=== PATIENT | female | born 1965 | race Caucasian/White ===

== ENCOUNTER 2017-06-04 08:24 | Emergency (ER) | payer MEDICAID ==
[2017-06-04] MEDS ORDERED: Aspirin 81 MG Tab.Chew PO ONE (08:33)
[2017-06-04] MEDS ORDERED: Sodium Chloride 0.9% 10 ML Syringe FLUSH PRN (08:33)
--- NOTE | 2017-06-04 08:40 | EDM.PDOC ---
ED HPI GENERAL MEDICAL PROBLEM - General Chief Complaint: Chest Pain Stated Complaint: SENT FROM RADIOLOGY Time Seen by Provider: 06/04/17 08:26 Source of Information: Reports: Patient, Provider History Limitations: Reports: No Limitations - History of Present Illness INITIAL COMMENTS - FREE TEXT/NARRATIVE: The patient presents from radiology with left sided chest pain down into her left arm. This started this morning when she was doing a cardiac stress test. She describes the chest pain as squeezing. She is short of breath with it. She has no fever, chills, cough, abdominal pain, nausea or vomiting. She has a history of 2 MIs with stents. 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 For a few weeks she has been having chest pain and she sees Dr Subramanian and he recommended a stress test be done. There were no changes on her EKG with the stress test but she failed due to symptoms. Onset: Sudden Duration: Minutes: Location: Reports: Chest Quality: Reports: Other (Squeezing) Severity: Severe Improves with: Reports: None Worsens with: Reports: None Associated Symptoms: Reports: Chest Pain, Shortness of Breath. Denies: Cough, Fever/Chills, Headaches, Nausea/Vomiting Left Chest Pain Score (Numeric/FACES): 8 - Related Data Allergies Allergy/AdvReac Type Severity Reaction Status Date / Time atorvastatin calcium Allergy Anaphylactic Verified 06/04/17 08:32 [From Lipitor] Shock levofloxacin [From Levaquin] Allergy Nausea and Verified 06/04/17 08:32 Vomiting meperidine HCl [From Demerol] Allergy Anaphylactic Verified 06/04/17 08:32 Shock Sulfa (Sulfonamide Allergy Anaphylactic Verified 06/04/17 08:32 Antibiotics) Shock sulfamethoxazole Allergy Anaphylactic Verified 06/04/17 08:32 [From Bactrim] Shock trimethoprim [From Bactrim] Allergy Anaphylactic Verified 06/04/17 08:32 Shock morphine AdvReac Nausea and Verified 06/04/17 08:32 Vomiting nalbuphine HCl [From Nubain] AdvReac Nausea and Verified 06/04/17 08:32 Vomiting Home Meds: Home Meds Aspirin [Darrell Chewable Aspirin] 81 mg PO DAILY 11/03/13 [History] Acetaminophen [Acetaminophen Extra Strength] 500 mg PO Q4HR PRN 06/26/14 [ History] Clopidogrel Bisulfate [Clopidogrel] 75 mg PO DAILY 06/26/14 [History] Nitroglycerin [Nitrostat] 0.4 mg SL ASDIRECTED PRN 06/26/14 [History] Carvedilol 25 mg PO BID 06/17/16 [History] Isosorbide Mononitrate [Isosorbide Mononitrate ER] 120 mg PO DAILY 06/17/16 [ History] Rosuvastatin [Crestor] 20 tab PO DAILY 06/17/16 [History] amLODIPine Besylate [Amlodipine Besylate] 5 mg PO DAILY 06/17/16 [History] diphenhydrAMINE [Benadryl] 1 tab PO Q6HR PRN 06/17/16 [History] Diltiazem [Tiazac] 120 mg PO DAILY 06/04/17 [History] Fluticasone Furoate [Flonase Sensimist] 1 spray INH BID 06/04/17 [History] Ranitidine HCl [Zantac] 150 mg PO DAILY 06/04/17 [History] Sucralfate [Carafate] 1 tab PO QID PRN 06/04/17 [History] Past Medical History HEENT History: Reports: Impaired Vision Cardiovascular History: Reports: High Cholesterol, Hypertension, [place] Other Cardiovascular History: atrial runs, PSVT, short run of Vtach, SVT, heart cath with stent x 1, EP study Other Respiratory History: rib resection, recent sleep study, pending sleep apnea results Gastrointestinal History: Reports: Diverticulosis, Gastritis Genitourinary History: Reports: Renal Calculus, Other (See Below) Other Genitourinary History: kidney disease 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 Other Musculoskeletal History: lock jaw Neurological History: Reports: None Psychiatric History: Reports: None Endocrine/Metabolic History: Reports: None Hematologic History: Reports: Anemia Immunologic History: Reports: None Oncologic (Cancer) History: Reports: None Dermatologic History: Reports: None - Past Surgical History GI Surgical History: Reports: Colonoscopy, Other (See Below) Musculoskeletal Surgical History: Reports: Other (See Below) Social & Family History - Tobacco Use Smoking Status *Q: Current Every Day Smoker Years of Tobacco use: 8 Packs/Tins Daily: 0.2 Second Hand Smoke Exposure: No - Caffeine Use Caffeine Use: Reports: Coffee - Alcohol Use Days Per Week of Alcohol Use: 0 Number of Drinks Per Day: 0 Total Drinks Per Week: 0 - Recreational Drug Use Recreational Drug Use: No Drug Use in Last 12 Months: No ED ROS GENERAL - Review of Systems Review Of Systems: See Below Constitutional: Reports: No Symptoms HEENT: Reports: No Symptoms Respiratory: Reports: Shortness of Breath Cardiovascular: Reports: Chest Pain Endocrine: Reports: No Symptoms GI/Abdominal: Reports: No Symptoms : Reports: No Symptoms Musculoskeletal: Reports: No Symptoms ED EXAM, GENERAL - Physical Exam Exam: See Below Exam Limited By: No Limitations General Appearance: Alert, No Apparent Distress Ears: Normal External Exam Nose: Normal Inspection Head: Atraumatic, Normocephalic Neck: Normal Inspection Respiratory/Chest: No Respiratory Distress, Lungs Clear, Normal Breath Sounds Cardiovascular: Regular Rate, Rhythm, No Edema, No Murmur GI/Abdominal: Soft, Non-Tender, No Organomegaly, No Mass Back Exam: Normal Inspection Extremities: Normal Inspection EKG INTERPRETATION EKG Date: 06/04/17 Time: 08:26 Rhythm: NSR Rate (Beats/Min): 86 Cosby: Normal P-Wave: Present QRS: Normal ST-T: Normal QT: Normal EKG Interpretation Comments: PAC Course - Vital Signs Last Recorded V/S: Last Vital Signs Temp 96.5 F 06/04/17 08:26 Pulse 89 06/04/17 08:26 Resp 18 06/04/17 08:26 BP 140/76 06/04/17 08:59 Pulse Ox 100 06/04/17 08:26 - Orders/Labs/Meds Orders: Active Orders 24 hr Category Date Time Status Cardiac Monitoring [RC] . DIRECTED Care 06/04/17 08:33 Active EKG Documentation Completion [RC] STAT Care 06/04/17 08:34 Active Oxygen Therapy [RC] PRN Care 06/04/17 08:33 Active Peripheral IV Care [RC] . DIRECTED Care 06/04/17 08:34 Active CBC W/O DIFF,HEMOGRAM [HEME] MOTH@0700 Lab 06/08/17 07:00 Ordered CBC W/O DIFF,HEMOGRAM [HEME] MOTH@0700 Lab 06/11/17 07:00 Ordered CBC W/O DIFF,HEMOGRAM [HEME] MOTH@0700 Lab 06/15/17 07:00 Ordered CBC W/O DIFF,HEMOGRAM [HEME] MOTH@0700 Lab 06/18/17 07:00 Ordered CBC W/O DIFF,HEMOGRAM [HEME] MOTH@0700 Lab 06/22/17 07:00 Ordered CBC W/O DIFF,HEMOGRAM [HEME] MOTH@0700 Lab 06/25/17 07:00 Ordered Heparin Sodium/D5W [Heparin 25,000 Units in D5W 500 ML] Med 06/04/17 11:15 Active 25,000 units in 500 ml IV TITRATE Nitroglycerin [Nitrostat] Med 06/04/17 08:33 Active 0.4 mg SL Q5M PRN Nitroglycerin/D5W [Nitroglycerin 25 MG/D5W 250 ML] Med 06/04/17 11:15 Active 25 mg in 250 ml IV TITRATE Sodium Chloride 0.9% [Saline Flush] Med 06/04/17 08:33 Active 10 ml FLUSH ASDIRECTED PRN Peripheral IV Insertion Adult [OM.PC] Stat Oth 06/04/17 08:33 Ordered Medication Orders Nitroglycerin/Dextrose (Nitroglycerin 25 Mg/D5w 250 Ml) 25 mg in 250 mls @ 3 mls/hr IV TITRATE KARINA PRN Reason: Protocol Heparin Sodium/Dextrose (Heparin 25,000 Units In D5w 500 Ml) 25,000 units in 500 mls @ 20.321 mls/hr IV TITRATE KARINA; 10 UNITS/KG/HR PRN Reason: Protocol Nitroglycerin (Nitrostat) 0.4 mg SL Q5M PRN PRN Reason: Chest Pain Stop: 06/05/17 08:34 Last Admin: 06/04/17 08:59 Dose: 0.4 mg Admin: 06/04/17 08:54 Dose: 0.4 mg Admin: 06/04/17 08:43 Dose: 0.4 mg Sodium Chloride (Saline Flush) 10 ml FLUSH ASDIRECTED PRN PRN Reason: Keep Vein Open Last Admin: 06/04/17 08:44 Dose: 10 ml Labs: Laboratory Tests 06/04/17 06/04/17 Range/Units 08:49 08:49 WBC 6.45 (3.98-10.04) K/mm3 RBC 5.33 H (3.98-5.22) M/mm3 Hgb 13.5 (11.2-15.7) gm/L Hct 42.0 (34.1-44.9) % MCV 78.8 L (79.4-94.8) fl MCH 25.3 L (25.6-32.2) pg MCHC 32.1 L (32.2-35.5) g/dl RDW Std Deviation 45.1 (36.4-46.3) fL Plt Count 310 (182-369) K/mm3 MPV 9.0 L (9.4-12.3) fl Neut % (Auto) 55.6 (34.0-71.1) % Lymph % (Auto) 34.3 (19.3-51.7) % Zavala % (Auto) 7.1 (4.7-12.5) % Eos % (Auto) 1.9 (0.7-5.8) Baso % (Auto) 0.6 (0.1-1.2) % Neut # (Auto) 3.59 (1.56-6.13) K/mm3 Lymph # (Auto) 2.21 (1.18-3.74) K/mm3 Zavala # (Auto) 0.46 H (0.24-0.36) K/mm3 Eos # (Auto) 0.12 (0.04-0.36) K/mm3 Baso # (Auto) 0.04 (0.01-0.08) K/mm3 Sodium 141 (136-145) mEq/L Potassium 3.8 (3.5-5.1) mEq/L Chloride 107 (98-107) mEq/L Carbon Dioxide 24 (21-32) mEq/L Anion Gap 13.8 (5-15) BUN 17 (7-18) mg/dL Creatinine 0.8 (0.55-1.02) mg/dL Est Cr Clr Drug Dosing 64.32 mL/min Estimated GFR (MDRD) > 60 (>60) mL/min BUN/Creatinine Ratio 21.3 H (14-18) Glucose 117 H (74-106) mg/dL Calcium 8.5 (8.5-10.1) mg/dL Total Bilirubin 0.3 (0.2-1.0) mg/dL AST 14 L (15-37) U/L ALT 25 (14-59) U/L Alkaline Phosphatase 107 (46-116) U/L Troponin I < 0.017 (0.00-0.056) ng/mL Total Protein 7.2 (6.4-8.2) g/dl Albumin 3.3 L (3.4-5.0) g/dl Globulin 3.9 gm/dL Albumin/Globulin Ratio 0.9 L (1-2) Meds: Medications Generic Name Dose Route Start Last Admin Trade Name Freq PRN Reason Stop Dose Admin Nitroglycerin/Dextrose 25 mg in 250 mls @ 3 mls/hr 06/04/17 11:15 Nitroglycerin 25 Mg/D5w 250 Ml IV TITRATE KARINA Protocol Heparin Sodium/Dextrose 25,000 units in 500 mls @ 20.321 mls/hr 06/04/17 11: 15 Heparin 25,000 Units In D5w 500 Ml IV TITRATE KARINA Protocol 10 UNITS/KG/HR Nitroglycerin 0.4 mg 06/04/17 08:33 06/04/17 08:59 Nitrostat SL 06/05/17 08:34 0.4 mg Q5M PRN Administration Chest Pain Sodium Chloride 10 ml 06/04/17 08:33 06/04/17 08:44 Saline Flush FLUSH 10 ml ASDIRECTED PRN Administration Keep Vein Open Discontinued Medications Generic Name Dose Route Start Last Admin Trade Name Evgenyq PRN Reason Stop Dose Admin Aspirin 324 mg 06/04/17 08:33 06/04/17 08:42 Aspirin PO 06/04/17 08:34 324 mg ONETIME ONE Administration Heparin Sodium (Porcine) 5,000 units 06/04/17 11:13 Heparin Sodium IVPUSH 06/04/17 11:14 ONETIME ONE - Re-Assessments/Exams Free Text/Narrative Re-Assessment/Exam: 06/04/17 08:39 I ordered oxygen PRN, EKG, CXR, labs, aspirin and nitro. 06/04/17 11:19 Her EKG shows a NSR with no acute changes. Her CXR looks good. Her CBC and CMP looks good. Her troponin was negative. Her pain is better but not gone. It is down to 2/10. I called the herbologist transportation planner at [facility] and he accepted the patient but he did want the stress test done first. She will have the nuclear part soon. I also talked with the hospitalist Dr Starkey. I ordered a nitro drip, heparin bolus of 4,000 units IV and a drip at 1,000 units/ hr. Departure - Departure Time of Disposition: 11:30 Disposition: DC/Tfer to Acute Hospital 02 Reason for Transfer *Q: Other Condition: Poor Clinical Impression: Chest pain, Unstable angina Referrals: Gómez Abraham MD [Primary Care Provider] - Forms: ED Department Discharge - My Orders Last 24 Hours: My Active Orders 06/04/17 08:33 Cardiac Monitoring [RC] . DIRECTED Oxygen Therapy [RC] PRN Nitroglycerin [Nitrostat] 0.4 mg SL Q5M PRN Sodium Chloride 0.9% [Saline Flush] 10 ml FLUSH ASDIRECTED PRN Peripheral IV Insertion Adult [OM.PC] Stat 06/04/17 08:34 EKG Documentation Completion [RC] STAT Peripheral IV Care [RC] . DIRECTED 06/04/17 11:15 Heparin Sodium/D5W [Heparin 25,000 Units in D5W 500 ML] 25,000 units in 500 ml IV TITRATE Nitroglycerin/D5W [Nitroglycerin 25 MG/D5W 250 ML] 25 mg in 250 ml IV TITRATE 06/08/17 07:00 CBC W/O DIFF,HEMOGRAM [HEME] MOTH@0700 06/11/17 07:00 CBC W/O DIFF,HEMOGRAM [HEME] MOTH@0700 06/15/17 07:00 CBC W/O DIFF,HEMOGRAM [HEME] MOTH@0700 06/18/17 07:00 CBC W/O DIFF,HEMOGRAM [HEME] MOTH@0700 06/22/17 07:00 CBC W/O DIFF,HEMOGRAM [HEME] MOTH@0700 06/25/17 07:00 CBC W/O DIFF,HEMOGRAM [HEME] MOTH@0700 - Assessment/Plan Last 24 Hours: My Active Orders 06/04/17 08:33 Cardiac Monitoring [RC] . DIRECTED Oxygen Therapy [RC] PRN Nitroglycerin [Nitrostat] 0.4 mg SL Q5M PRN Sodium Chloride 0.9% [Saline Flush] 10 ml FLUSH ASDIRECTED PRN Peripheral IV Insertion Adult [OM.PC] Stat 06/04/17 08:34 EKG Documentation Completion [RC] STAT Peripheral IV Care [RC] . DIRECTED 06/04/17 11:15 Heparin Sodium/D5W [Heparin 25,000 Units in D5W 500 ML] 25,000 units in 500 ml IV TITRATE Nitroglycerin/D5W [Nitroglycerin 25 MG/D5W 250 ML] 25 mg in 250 ml IV TITRATE 06/08/17 07:00 CBC W/O DIFF,HEMOGRAM [HEME] MOTH@69906/11/17 07:00 CBC W/O DIFF,HEMOGRAM [HEME] MOTH@69906/15/17 07:00 CBC W/O DIFF,HEMOGRAM [HEME] MOTH@69906/18/17 07:00 CBC W/O DIFF,HEMOGRAM [HEME] MOTH@69906/22/17 07:00 CBC W/O DIFF,HEMOGRAM [HEME] MOTH@69906/25/17 07:00 CBC W/O DIFF,HEMOGRAM [HEME] MOTH@699
[2017-06-04] MEDS: Nitroglycerin 0.4 MG Tab.SL SL PRN ×3 (08:43→08:59)
[2017-06-04 09:00] VITALS: BP 140/76
--- NOTE | 2017-06-04 09:02 | CR ---
Chest: Frontal view of the chest was obtained. Comparison: Prior chest x-ray of 02/20/15. Minimal atelectasis is incidentally noted within the lateral left costophrenic angle. Lungs otherwise are clear. Heart size and mediastinum are normal. Calcifications are noted off the left shoulder compatible with calcific tendinitis. Two linear densities are seen overlying the left posterior third rib of uncertain etiology but felt to be incidental. Impression: 1. Incidental findings. Nothing acute is seen. Diagnostic code #2
[2017-06-04] MEDS ORDERED: Heparin Sodium 5,000 Units/ML Vial IVPUSH ONE ×2 (11:13→11:23)
[2017-06-04] MEDS ORDERED: Nitroglycerin/D5W 25 MG/250 ML BOTTLE IV SCH (11:15)
[2017-06-04] MEDS ORDERED: Heparin Sodium/D5W 25,000 UNITS/500 ML BAG IV SCH (11:15)
== END 2017-06-04 12:45 ==
LOC: JD.ED 08:24 → SUPCPDRO 08:24 → JD.ED 12:45
DX: I20.0 Unstable angina (principal); F17.210 Nicotine dependence, cigarettes, uncomplicated; I10 Essential (primary) hypertension; E78.00 Pure hypercholesterolemia, unspecified; Z79.82 Long term (current) use of aspirin; Z79.02 Long term (current) use of antithrombotics/antiplatelets; Z79.899 Other long term (current) drug therapy; Z88.1 Allergy status to other antibiotic agents; Z88.5 Allergy status to narcotic agent; Z88.2 Allergy status to sulfonamides; Z88.8 Allergy status to other drugs, medicaments and biological substances
CPT/HCPCS: 36415; 71045; 71045-26; 80053; 84484; 85025; 93005; 96365; 96368; 99285-25; A9270-GY; J1644; J7050

== ENCOUNTER 2020-05-02 08:42 | Day surgery (SDC) | payer MEDICARE, MEDICAID ==
[~2020-05-02 08:42] MED LIST: Lactated Ringers 1,000 ML IV SCH; Lidocaine 1%/Sod Bicarbonate in NS 8.4% 1 ML Syringe IDERM PRN; Scopolamine 1.5 MG Transdermal Patch TRDERM SCH; Sodium Chloride 0.9% 10 ML Syringe FLUSH PRN
--- NOTE | 2020-05-02 09:23 | PCM.PREANE ---
Preanesthetic Assessment - Procedure Proposed Procedure: egd colonosciopy diagnostic - Anesthesia/Transfusion/Family Hx Anesthesia History: Prior Anesthesia Reaction Type of Anesthesia Reaction: Excessive Nausea/Vomiting Family History of Anesthesia Reaction: No Transfusion History: Prior Transfusion Without Reaction - Review of Systems General: No Symptoms Pulmonary: Shortness of Breath, Wheezing, Cough (has because she has heart disease- right sided heart failure) Cardiovascular: Chest Pain (chronic chest pain- spasm- takes imdur for it), Dyspnea on Exertion Gastrointestinal: No Symptoms Neurological: No Symptoms Other: Reports: Sinus Problem (allergies) - Physical Assessment NPO Status Date: 05/01/20 NPO Status Time: 22:30 Vital Signs: Last Vital Signs Temp 97.4 F 05/02/20 08:40 Pulse 84 05/02/20 08:40 Resp 16 05/02/20 08:40 BP 115/64 05/02/20 08:40 Pulse Ox 93 L 05/02/20 08:40 Height: 5 ft 2 in Weight: 108.862 kg ASA Class: 3 Mental Status: Alert & Oriented x3 Airway Class: Mallampati = 1 Dentition: Reports: Normal Dentition Thyro-Mental Finger Breadths: 3 Mouth Opening Finger Breadths: 3 ROM/Head Extension: Full Lungs: Clear to Auscultation, Normal Respiratory Effort Cardiovascular: Regular Rate, Regular Rhythm - Allergies Allergies/Adverse Reactions: Allergies Allergy/AdvReac Type Severity Reaction Status Date / Time atorvastatin calcium Allergy Anaphylactic Verified 05/01/20 12:34 [From Lipitor] Shock diltiazem Allergy Edema Verified 05/01/20 12:34 fluticasone Allergy Cough Verified 05/01/20 12:34 [From Advair Diskus] Iodinated Contrast Media Allergy Nausea Verified 05/01/20 12:34 levofloxacin [From Levaquin] Allergy Nausea and Verified 05/01/20 12:34 Vomiting meperidine HCl [From Demerol] Allergy Anaphylactic Verified 05/01/20 12:34 Shock salmeterol Allergy Cough Verified 05/01/20 12:34 [From Advair Diskus] Sulfa (Sulfonamide Allergy Anaphylactic Verified 05/01/20 12:34 Antibiotics) Shock morphine AdvReac Nausea and Verified 05/01/20 12:34 Vomiting nalbuphine HCl [From Nubain] AdvReac Nausea and Verified 05/01/20 12:34 Vomiting - Blood Blood Available: No - Anesthesia Plan Beta Anastacio: Carvedilol Med Last Dose Date: 05/01/20 Med Last Dose Time: 10:00 - Acknowledgements Anesthesia Type Planned: MAC Pt an Appropriate Candidate for the Planned Anesthesia: Yes Alternatives and Risks of Anesthesia Discussed w Pt/Guardian: Yes Pt/Guardian Understands and Agrees with Anesthesia Plan: Yes PreAnesthesia Questionnaire HEENT History: Reports: Impaired Vision, Other (See Below) Other HEENT History: blurred vision to right eye Cardiovascular History: Reports: High Cholesterol, Hypertension, [place] Other Cardiovascular History: atrial runs, PSVT, short run of Vtach, SVT, heart cath with stent x 2 - 2013 and 2018 EP study Respiratory History: Reports: Asthma, Sleep Apnea, Other (See Below) Other Respiratory History: rib resection, dypsnea on exertion Gastrointestinal History: Reports: Diverticulosis, Gastritis, GERD Other Gastrointestinal History: hemorrhagic gastritis, post op nausea and vomiting Genitourinary History: Reports: Renal Calculus, Other (See Below) Other Genitourinary History: kidney disease 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 Musculoskeletal History: Reports: Arthritis Other Musculoskeletal History: lock jaw Neurological History: Reports: Other (See Below) Other Neuro History: mitochondrial disease Psychiatric History: Reports: None Endocrine/Metabolic History: Reports: Obesity/BMI 30+ Hematologic History: Reports: Anemia, Other (See Below) Other Hematologic History: microcytosis Immunologic History: Reports: None Oncologic (Cancer) History: Reports: None Dermatologic History: Reports: None - Infectious Disease History Infectious Disease History: Reports: None - Past Surgical History Head Surgeries/Procedures: Reports: None HEENT Surgical History: Reports: None Cardiovascular Surgical History: Reports: Coronary Artery Stent Respiratory Surgical History: Reports: None GI Surgical History: Reports: Cholecystectomy, Colonoscopy, EGD, Other (See Below) Other GI Surgeries/Procedures: abdominal surgery, lysis of adhesions Female Surgical History: Reports: Hysterectomy, Oophorectomy Male Surgical History: Reports: None Endocrine Surgical History: Reports: None Neurological Surgical History: Reports: None Musculoskeletal Surgical History: Reports: Other (See Below) Other Musculoskeletal Surgeries/Procedures:: R rotator cuff repair, biceps repair, bone spurs removed, left foot surgery (neuromas removed) Dermatological Surgical History: Reports: None - SUBSTANCE USE Tobacco Use Status *Q: Current Every Day Tobacco User Tobacco Use Within Last Twelve Months: Cigarettes Second Hand Smoke Exposure: Yes Days Per Week of Alcohol Use: 0 Recreational Drug Use History: No - HOME MEDS Home Medications: Home Meds Aspirin [Darrell Chewable Aspirin] 81 mg PO DAILY 11/03/13 [History] Acetaminophen [Acetaminophen Extra Strength] 500 mg PO Q4HR PRN 06/26/14 [His tory] Clopidogrel Bisulfate [Clopidogrel] 75 mg PO DAILY 06/26/14 [History] Nitroglycerin [Nitrostat] 0.4 mg SL ASDIRECTED PRN 06/26/14 [History] amLODIPine Besylate [Amlodipine Besylate] 5 mg PO DAILY 06/17/16 [History] carvediloL [Carvedilol] 25 mg PO BID 06/17/16 [History] diphenhydrAMINE [Benadryl] 1 tab PO Q6HR PRN 06/17/16 [History] Fluticasone Furoate [Flonase Sensimist] 1 spray INH BID 06/04/17 [History] Albuterol [Proventil HFA] 2 puff INH Q8H PRN 05/01/20 [History] Calcium Carbonate [Tums] 500 mg PO QID PRN 05/01/20 [History] Furosemide [Lasix] 20 mg PO QPM 05/01/20 [History] Furosemide [Lasix] 40 mg PO QAM 05/01/20 [History] Isosorbide Mononitrate [Imdur] 60 mg PO BID 05/01/20 [History] Potassium Chloride 10 meq PO BID 05/01/20 [History] guaiFENesin [Mucinex] 1,200 mg PO BID 05/01/20 [History] - CURRENT (IN HOUSE) MEDS Current Meds: Current Medications Lactated Ringer's (Ringers, Lactated) 1,000 mls @ 125 mls/hr IV ASDIRECTED KARINA Stop: 05/02/20 23:00 Lidocaine/Sodium Bicarbonate (Buffered Lidocaine 1% In Ns 8.4%) 0.25 ml IDERM ONETIME PRN PRN Reason: Prior to IV Start Stop: 05/02/20 18:00 Scopolamine (Transderm-Scop) 1.5 mg TRDERM ONETIME KARINA Stop: 05/02/20 14:00 Last Admin: 05/02/20 08:42 Dose: 1.5 mg Documented by: Sodium Chloride (Saline Flush) 10 ml FLUSH ASDIRECTED PRN PRN Reason: Keep Vein Open Stop: 05/02/20 18:00
[2020-05-02] MEDS ORDERED: Albuterol 0.083% 2.5 MG/3 ML Neb Soln NEB ONE (09:25)
[2020-05-02] MEDS ORDERED: Propofol 200 MG/20 ML SDV ONE ×2 (09:42→11:07)
[2020-05-02] MEDS ORDERED: Lidocaine 1% 4 ML ONE (09:42)
[2020-05-02] MEDS ORDERED: Midazolam 1 MG/ML 2 ML SDV ONE (09:42)
[2020-05-02] MEDS ORDERED: fentaNYL 100 MCG/2 ML SDV ONE (09:42)
[2020-05-02] MEDS ORDERED: Lactated Ringers 1,000 ML ONE (11:41)
--- NOTE | 2020-05-02 11:43 | PCM.OPNOTE ---
- General Post-Op/Procedure Note Date of Surgery/Procedure: 05/02/20 Operative Procedure(s): EGD and colonoscopy Findings: 1. Irregular GE junction (features of esophagitis) 2. Small sliding hiatal hernia 3. Gastritis 4. Duodenitis 5. Duodenal polyp 6. Diverticulosis 7. Sigmoid colitis and proctitis 8. Ascending colon polyp 9. Transverse colon polyp 10. Sigmoid polyp x2 11. Rectal polyp x2 Pre Op Diagnosis: Iron deficiency anemia, abdominal pain Post-Op Diagnosis: same Anesthesia Technique: MAC Primary Surgeon: Alison Isabel Anesthesia Provider: Gavino Carrillo Pathology: 1. GE junction biopsies (features of esophagitis) 2. Gastritic antrum biopsy 3. Duodenal biopsy 4. Duodenal polyp biopsy 5. Sigmoid colitis and proctitis biopsies 6. Ascending colon polyp 7. Transverse colon polyp 8 Sigmoid polyp x2 9. Rectal polyp x2 Fluid Replacement, Intraop: 1,000 Output, Urine Amount: 0 EBL in mLs: 0 Complications: none apparent Condition: Good
--- NOTE | 2020-05-02 11:45 | PCM.PRNOTE ---
- Free Text/Narrative Note: Operative Report Date of Procedure: May 02, 2020 Pre Op Diagnosis: iron deficiency anemia, abdominal pain Post-Op Diagnosis: same Operative Procedures: 1. EGD with biopsy 2. Colonoscopy to the cecum Primary Surgeon: Alison Isabel MD Anesthesia Provider: Gavino Carrillo CRNA Anesthesia Technique: MAC IV Fluid Replacement, Intraop: 1000cc crystalloid Output, Urine Amount: 0cc EBL in mLs: 0cc Findings: 1. Irregular GE junction (features of esophagitis) 2. Small sliding hiatal hernia 3. Gastritis 4. Duodenitis 5. Duodenal polyp 6. Diverticulosis 7. Sigmoid colitis and proctitis 8. Ascending colon polyp 9. Transverse colon polyp 10. Sigmoid polyp x2 11. Rectal polyp x2 Specimens: 1. GE junction biopsies (features of esophagitis) 2. Gastritic antrum biopsy 3. Duodenal biopsy 4. Duodenal polyp biopsy 5. Sigmoid colitis and proctitis biopsies 6. Ascending colon polyp 7. Transverse colon polyp 8 Sigmoid polyp x2 9. Rectal polyp x2 Drain/Tubes: None Indication: The patient is an 54-year-old lady who presented to the clinic with findings of iron deficiency anemia. The patient reported symptoms of abdominal pain. The patient was consented for a diagnostic EGD and colonoscopy. Risks of bleeding, and perforation were discussed, and the patient agreed to the risks and wished to proceed. Description of the procedure: The patient was taken back to the endoscopy suite, and placed in the left lateral decubitus position. A bite block was placed. The patient was sedated with MAC anesthesia. The Olympus video endoscope was inserted into the oropharynx and guided under direct vision into the esophagus, stomach, and duodenum. The duodenal bulb was unremarkable, with findings of villous flattening and friability in the second portion of the duodenum. Biopsies were taken in the second portion of the duodenum with a cold biopsy forceps. The gastric antrum was inspected and cold biopsy forceps were used to take tissue samples for H. pylori. There was erythema with punctate areas of adherent blood in the distal stomach The scope was withdrawn to the stomach and retroflexed. No erosions or ulcers were noted. The scope was withdrawn to the esophagus. A this point we noted a small sliding hiatal hernia. Irregular GE junction changes were noted, and this was biopsied in four quadrants with a cold biopsy forceps. The endoscope was then withdrawn Next, anorectal examination was performed. No lesions, masses or hemorrhoids were noted externally or on palpation. The scope was placed into the rectum and advanced to cecum. Upon reaching the cecum, and the patients cecum was entered. There was some tortuosity of the colon. The ileocecal valve was well visualized and the appendiceal orifice identified. At this point, the scope was slowly withdrawn, paying attention to the mucosa. The patient had a good bowel prep, 85-90% of the mucosa was visible. Scattered diverticulosis was noted in the ascending colon, and more concentrated in the descending and sigmoid colon. A 2mm polyp was found in the ascending colon and removed with a jumbo cold biopsy forceps. A 3mm flat polyp was seen in the transverse colon and removed with a jumbo cold biopsy forceps. A sessile 7mm polyp was found in the transverse colon and removed with a jumbo cold biopsy forceps. There were four 2-4mm flat polyps in the sigmoid and rectum, removed with a jumbo cold biopsy forceps. There was additional patchy mucosal irregularity in the sigmoid and rectum with erythema and petechiae which was biopsied with a jumbo cold biopsy forceps. In the rectum, scope was retroflexed and some hemorrhoidal tissue was noted. The scope was placed back in the lumen and excess air was aspirated. The scope was removed. The patient tolerated the procedure very well. Complications: None apparent Condition: The patient was transported to PACU in stable condition. Alison Isabel MD General Surgery
--- NOTE | 2020-05-02 11:51 | PCM48HPAN ---
Post Anesthesia Note - EVALUATION WITHIN 48HRS OF ANESTHETIC Vital Signs in Normal Range: Yes Patient Participated in Evaluation: Yes Respiratory Function Stable: Yes Airway Patent: Yes Cardiovascular Function Stable: Yes Hydration Status Stable: Yes Pain Control Satisfactory: Yes Nausea and Vomiting Control Satisfactory: Yes Mental Status Recovered: Yes Vital Signs: Last Vital Signs Temp 36.3 C 05/02/20 08:40 Pulse 84 05/02/20 08:40 Resp 16 05/02/20 08:40 BP 115/64 05/02/20 08:40 Pulse Ox 98 05/02/20 09:25 - COMMENTS/OBSERVATIONS Free Text/Narrative:: no anesthesia complications noted
[2020-05-02 12:28] VITALS: BP 114/62; PULSE 81
== END 2020-05-02 12:30 | disposition home or self-care (01) ==
LOC: JD.SDS 08:42
PROVIDERS: ATTEND Surgery
DX: D12.3 Benign neoplasm of transverse colon (principal); D50.9 Iron deficiency anemia, unspecified; K29.90 Gastroduodenitis, unspecified, without bleeding; K31.89 Other diseases of stomach and duodenum; K44.9 Diaphragmatic hernia without obstruction or gangrene; K57.30 Diverticulosis of large intestine without perforation or abscess without bleeding; K64.9 Unspecified hemorrhoids; K62.89 Other specified diseases of anus and rectum; I47.1 Supraventricular tachycardia; E66.01 Morbid (severe) obesity due to excess calories; E78.5 Hyperlipidemia, unspecified; I25.10 Atherosclerotic heart disease of native coronary artery without angina pectoris; G47.33 Obstructive sleep apnea (adult) (pediatric); I11.0 Hypertensive heart disease with heart failure; I50.812 Chronic right heart failure; F17.210 Nicotine dependence, cigarettes, uncomplicated; Z68.42 Body mass index [BMI] 45.0-49.9, adult; Z80.0 Family history of malignant neoplasm of digestive organs; Z90.49 Acquired absence of other specified parts of digestive tract; Z98.890 Other specified postprocedural states; Z79.899 Other long term (current) drug therapy; Z79.82 Long term (current) use of aspirin; Z88.8 Allergy status to other drugs, medicaments and biological substances; Z88.2 Allergy status to sulfonamides; Z88.5 Allergy status to narcotic agent
CPT/HCPCS: 43239; 45380; 94640; A9270; J2001; J2250; J2704; J3010; J7120; 00813

== ENCOUNTER 2021-02-13 08:14 | Day surgery (SDC) | payer MEDICARE, MEDICAID ==
[~2021-02-13 08:14] MED LIST changes: +Lidocaine 1% 4 ML ONE; +Propofol 200 MG/20 ML SDV ONE; -Scopolamine 1.5 MG Transdermal Patch TRDERM SCH; +fentaNYL 100 MCG/2 ML SDV ONE
--- NOTE | 2021-02-13 08:50 | PCM.PREANE ---
Preanesthetic Assessment - Procedure Proposed Procedure: EGD - Anesthesia/Transfusion/Family Hx Anesthesia History: Prior Anesthesia Reaction Type of Anesthesia Reaction: Excessive Nausea/Vomiting Family History of Anesthesia Reaction: No Transfusion History: Prior Transfusion Without Reaction - Review of Systems General: No Symptoms Pulmonary: Other (BOBBY, asthma, 5-6 cig/day, sensitive airway) Cardiovascular: Other (Right sided heart failure, Hx NH (stents in LAD, MV prolapse, SVT, ) Gastrointestinal: Other (GERD, stomach cramps ) Neurological: No Symptoms - Physical Assessment NPO Status Date: 02/12/21 NPO Status Time: 19:30 Height: 1.57 m Weight: 112 kg ASA Class: 3 Mental Status: Alert & Oriented x3 Airway Class: Mallampati = 3 Dentition: Reports: Normal Dentition Thyro-Mental Finger Breadths: 3 Mouth Opening Finger Breadths: 3 ROM/Head Extension: Limited/Partial Lungs: Clear to Auscultation, Normal Respiratory Effort Cardiovascular: Regular Rate, Regular Rhythm - Allergies Allergies/Adverse Reactions: Allergies Allergy/AdvReac Type Severity Reaction Status Date / Time atorvastatin calcium Allergy Anaphylactic Verified 02/12/21 14:13 [From Lipitor] Shock diltiazem Allergy Edema Verified 02/12/21 14:13 meperidine HCl [From Demerol] Allergy Anaphylactic Verified 02/12/21 14:13 Shock Sulfa (Sulfonamide Allergy Anaphylactic Verified 02/12/21 14:13 Antibiotics) Shock fluticasone AdvReac Cough Verified 02/12/21 14:18 [From Advair Diskus] Iodinated Contrast Media AdvReac Nausea Verified 02/12/21 14:18 levofloxacin [From Levaquin] AdvReac Nausea and Verified 02/12/21 14:18 Vomiting morphine AdvReac Nausea and Verified 02/12/21 14:13 Vomiting nalbuphine HCl [From Nubain] AdvReac Nausea and Verified 02/12/21 14:13 Vomiting salmeterol AdvReac Cough Verified 02/12/21 14:18 [From Advair Diskus] - Blood Blood Available: No Product(s) Available: None - Anesthesia Plan Pre-Op Medication Ordered: None Beta Anastacio: Carvedilol - Acknowledgements Anesthesia Type Planned: MAC Pt an Appropriate Candidate for the Planned Anesthesia: Yes Alternatives and Risks of Anesthesia Discussed w Pt/Guardian: Yes Pt/Guardian Understands and Agrees with Anesthesia Plan: Yes PreAnesthesia Questionnaire HEENT History: Reports: Impaired Vision, Other (See Below) Other HEENT History: blurred vision to right eye Cardiovascular History: Reports: CAD, Heart Failure, High Cholesterol, Hypertension, NH, Stents Other Cardiovascular History: atrial runs, PSVT, short run of Vtach, SVT, heart cath with stent x 2 - 2013 and 2018 EP study Respiratory History: Reports: Asthma, Sleep Apnea, Other (See Below) Other Respiratory History: rib resection, recent sleep study, pending sleep apnea results Gastrointestinal History: Reports: Diverticulosis, Gastritis, GERD, Other (See Below) Other Gastrointestinal History: hemorrhagic gastritis, post op nausea and vomiting Genitourinary History: Reports: Renal Calculus, Other (See Below) Other Genitourinary History: kidney disease [employer] GRADER History: Reports: None Musculoskeletal History: Reports: Arthritis Other Musculoskeletal History: lock jaw Neurological History: Other Neuro History: mitochondrial disease Psychiatric History: Reports: None Endocrine/Metabolic History: Reports: Obesity/BMI 30+ Hematologic History: Reports: Anemia, Iron Deficiency Other Hematologic History: microcytosis Immunologic History: Reports: None Oncologic (Cancer) History: Reports: None Dermatologic History: Reports: None - Infectious Disease History Infectious Disease History: Reports: None - Past Surgical History Head Surgeries/Procedures: Reports: None HEENT Surgical History: Reports: None Cardiovascular Surgical History: Reports: Coronary Artery Stent Respiratory Surgical History: Reports: None GI Surgical History: Reports: Cholecystectomy, Colonoscopy, EGD, Other (See Below) Other GI Surgeries/Procedures: abdominal surgery, lysis of adhesions Female Surgical History: Reports: Hysterectomy Male Surgical History: Reports: None Endocrine Surgical History: Reports: None Neurological Surgical History: Reports: None Musculoskeletal Surgical History: Reports: Other (See Below) Other Musculoskeletal Surgeries/Procedures:: R rotator cuff repair, biceps repair, bone spurs removed, left foot surery (neuromas removed) Oncologic Surgical History: Reports: None Dermatological Surgical History: Reports: None - SUBSTANCE USE Tobacco Use Status *Q: Current Every Day Tobacco User Recreational Drug Use History: No - HOME MEDS Home Medications: Home Meds Aspirin [Darrell Chewable Aspirin] 81 mg PO DAILY 11/03/13 [History] Nitroglycerin [Nitrostat] 0.4 mg SL ASDIRECTED PRN 06/26/14 [History] carvediloL [Carvedilol] 25 mg PO BID 06/17/16 [History] diphenhydrAMINE [Benadryl] 1 tab PO Q6HR PRN 06/17/16 [History] Fluticasone Furoate [Flonase Sensimist] 1 spray INH BID 06/04/17 [History] Albuterol [Proventil HFA] 2 puff INH Q8H PRN 05/01/20 [History] Furosemide [Lasix] 20 mg PO QPM 05/01/20 [History] Furosemide [Lasix] 40 mg PO QAM 05/01/20 [History] Isosorbide Mononitrate [Imdur] 60 mg PO BID 05/01/20 [History] Potassium Chloride 10 meq PO BID 05/01/20 [History] guaiFENesin [Mucinex] 1,200 mg PO BID PRN 05/01/20 [History] Acetaminophen [Tylenol Extra Strength] 1,000 g PO Q6H PRN 02/12/21 [History] Calcium Carbonate [Tums] 500 mg PO QID PRN 02/12/21 [History] Ferrous Sulfate [Feosol] 325 mg PO DAILY 02/12/21 [History] - CURRENT (IN HOUSE) MEDS Current Meds: Current Medications Lactated Ringer's (Ringers, Lactated) 1,000 mls @ 125 mls/hr IV ASDIRECTED KARINA Stop: 02/13/21 23:00 Influenza Virus Vaccine (Flu Vacc [id number] 36mos Up/Pf 60 Mcg/0.5 Ml Syringe) 60 mcg IM .ONCE ONE Stop: 02/13/21 11:31 Lidocaine/Sodium Bicarbonate (Lidocaine 1%/Sod Bicarbonate In Ns 8.4% 1 Ml Syringe) 0.25 ml IDERM ONETIME PRN PRN Reason: Prior to IV Start Stop: 02/13/21 18:00 Sodium Chloride (Sodium Chloride 0.9% 10 Ml Syringe) 10 ml FLUSH ASDIRECTED PRN PRN Reason: Keep Vein Open Stop: 02/13/21 18:00 Discontinued Medications Fentanyl (Fentanyl 100 Mcg/2 Ml Sdv) Confirm Administered Dose 100 mcg .ROUTE .STK-MED ONE Stop: 02/13/21 07:53 Lactated Ringer's (Ringers, Lactated) 1,000 mls @ 125 mls/hr IV ASDIRECTED KARINA Stop: 01/30/21 23:00 Lidocaine HCl (Xylocaine-Mpf 1%) Confirm Administered Dose 4 mls @ as directed .ROUTE .STK-MED ONE Stop: 02/13/21 07:55 Influenza Virus Vaccine (Pharmacy To Dose - Influenza Vaccine) 1 each IM ONETIME ONE Stop: 02/13/21 11:31 Lidocaine/Sodium Bicarbonate (Lidocaine 1%/Sod Bicarbonate In Ns 8.4% 1 Ml Syringe) 0.25 ml IDERM ONETIME PRN PRN Reason: Prior to IV Start Stop: 01/30/21 18:00 Propofol (Propofol 200 Mg/20 Ml Sdv) Confirm Administered Dose 200 mg .ROUTE .STK-MED ONE Stop: 02/13/21 07:54 Sodium Chloride (Sodium Chloride 0.9% 10 Ml Syringe) 10 ml FLUSH ASDIRECTED PRN PRN Reason: Keep Vein Open Stop: 01/30/21 18:00
--- NOTE | 2021-02-13 10:03 | PCM.OPNOTE ---
- General Post-Op/Procedure Note Date of Surgery/Procedure: 02/13/21 Operative Procedure(s): EGD Findings: 1. Irregular Z-line 2. Gastritis 3. Bile reflux 4. Duodenitis 5. 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 Z-line biopsies 2. Gastric polyp in fundus 3. Antrum biopsies 4. Duodenal biopsies Fluid Replacement, Intraop: 400 Complications: none apparent Condition: Good
--- NOTE | 2021-02-13 10:05 | PCM.PRNOTE ---
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 Procedure: EGD Anesthesia: MAC Tug Boat Engineer: Graeme Britton CRNA IV fluids: 400 mL Estimated blood loss: 0 mL Findings: 1. Irregular Z-line 2. Gastritis 3. Bile reflux 4. Duodenitis 5. Gastric polyp Specimens: 1. Z-line biopsies 2. Gastric polyp in fundus 3. Antrum biopsies 4. Duodenal biopsies Indication: The patient is a 55 -year-old lady who presented for follow-up EGD. The patient previously had undergone an EGD with findings of Juan C's gland hyperplasia in the duodenum. The patient was consented for an EGD for surveillance. Risk of bleeding and perforation were discussed. The patient's consent was obtained Description of the procedure: The patient was taken to the endoscopy suite and placed on hemodynamic monitoring. The nurse woven label designer induced MAC anesthesia. A bite block was placed. The patient was positioned in the left lateral decubitus position. A timeout was performed. The endoscope was gently placed into the mouth to the back of the pharynx and introduced into the esophagus. The scope was gently advanced under direct visualization down to the level of the lower esophageal sphincter. The stomach was then entered. Normal rugal folds were noted. The scope was advanced into the antrum. We noted erythema with punctate adherent blood consistent with gastritis. The pylorus was then entered and the first and second portion of the duodenum was inspected. We did note some patchy erythema and friability consistent with duodenitis. Biopsies were taken in the duodenal bulb, first portion and second portion of the duodenum using a cold biopsy forceps. There were no ulcerations in the duodenum. The scope was withdrawn into the antrum and biopsies were taken in this location for H. pylori using a cold biopsy forceps. The scope was then retroflexed in the cardia and fundus were investigated. A 2 mm pale appearing area of polypoid tissue was noted in the fundus which was removed with a cold biopsy forceps for pathology. There were bilious secretions pooling in the stomach consistent with bile reflux. No other abnormalities were noted in the stomach. The scope was then withdrawn while inspecting the esophagus. The Z-line had a jagged and irregular appearance. Biopsies were taken 4 quadrants using a cold biopsy forceps. The procedure was terminated. the patient tolerated the procedure well without any evidence of complications. Alison Isabel MD General Surgery
--- NOTE | 2021-02-13 10:11 | PCM48HPAN ---
Post Anesthesia Note - EVALUATION WITHIN 48HRS OF ANESTHETIC Vital Signs in Normal Range: Yes Patient Participated in Evaluation: Yes Respiratory Function Stable: Yes Airway Patent: Yes Cardiovascular Function Stable: Yes Hydration Status Stable: Yes Pain Control Satisfactory: Yes Nausea and Vomiting Control Satisfactory: Yes Mental Status Recovered: Yes Vital Signs: Last Vital Signs Temp 36.1 C 02/13/21 08:35 Pulse 87 02/13/21 08:35 Resp 18 02/13/21 08:35 BP 91/57 L 02/13/21 08:35 Pulse Ox 95 02/13/21 08:35
--- NOTE | 2021-02-13 10:26 | PCM.SN.2 ---
- Free Text/Narrative Note: Pt complaining of urinary frequency and hematuria today. Will collect Urinalysis and follow up as outpatient. Alison Isabel MD General surgery Time Documentation
[2021-02-13 10:46] VITALS: BP 98/73; PULSE 64
[2021-02-13] MEDS ORDERED: FLU Vacc QS2021-22 36MOS UP/PF 60 MCG/0.5 ML Syringe IM ONE (11:30)
== END 2021-02-13 11:00 | disposition home or self-care (01) ==
LOC: JD.SDS 08:14
PROVIDERS: ATTEND Surgery
DX: K31.89 Other diseases of stomach and duodenum (principal); K22.89 Other specified disease of esophagus; K31.7 Polyp of stomach and duodenum; K29.90 Gastroduodenitis, unspecified, without bleeding; K21.9 Gastro-esophageal reflux disease without esophagitis; J45.909 Unspecified asthma, uncomplicated; G47.30 Sleep apnea, unspecified; F17.210 Nicotine dependence, cigarettes, uncomplicated; I25.2 Old myocardial infarction; E78.00 Pure hypercholesterolemia, unspecified; E66.9 Obesity, unspecified; Z01.812 Encounter for preprocedural laboratory examination; Z20.822 Contact with and (suspected) exposure to COVID-19; Z80.0 Family history of malignant neoplasm of digestive organs; Z98.890 Other specified postprocedural states; Z79.899 Other long term (current) drug therapy; Z79.82 Long term (current) use of aspirin; Z88.8 Allergy status to other drugs, medicaments and biological substances; Z88.2 Allergy status to sulfonamides; Z91.041 Radiographic dye allergy status; Z88.5 Allergy status to narcotic agent; Z84.2 Family history of other diseases of the genitourinary system
CPT/HCPCS: 43239; 81001; 88305; 90686; G0008; J2704; J3010; J7120; U0002; 00731

== ENCOUNTER 2022-12-03 08:07 | Emergency (ER) | payer MEDICARE, MEDICAID ==
[2022-12-03 08:28] VITALS: PULSE 84
[2022-12-03] MEDS ORDERED: Sodium Chloride 0.9% 10 ML Syringe FLUSH PRN (08:29)
[2022-12-03 08:39] LABS: BASOPHILS ABSOLUTE AUTO 0.04 K/mm3 (0.01-0.08); BASOPHILS PERCENT AUTO 0.4 % (0.1-1.2); EOSINOPHILS ABSOLUTE AUTO 0.25 K/mm3 (0.04-0.36); EOSINOPHILS PERCENT AUTO 2.6 (0.7-5.8); HEMOGLOBIN 14.6 gm/dl (11.2-15.7); IMMATURE GRAN ABSOLUTE AUTO 0.04 K/mm3 (0.00-0.10); IMMATURE GRAN PERCENT AUTO 0.4 % (<=1.0); LYMPHOCYTES ABSOLUTE AUTO 3.02 K/mm3 (1.18-3.74); LYMPHOCYTES PERCENT AUTO 31.7 % (19.3-51.7); MEAN CORPUSCULAR HEMOGLOBIN 27.8 pg (25.6-32.2); MEAN CORPUSCULAR HGB CONC 32.4 g/dl (32.2-35.5); MEAN CORPUSCULAR VOLUME 85.6 fl (79.4-94.8); MEAN PLATELET VOLUME 9.8 fl (9.4-12.3); MONOCYTES ABSOLUTE AUTO 0.63 K/mm3 (0.24-0.36); MONOCYTES PERCENT AUTO 6.6 % (4.7-12.5); NEUTROPHILS ABSOLUTE AUTO 5.54 K/mm3 (1.56-6.13); NEUTROPHILS PERCENT AUTO 58.3 % (34.0-71.1); PLATELET COUNT,PLT 303 K/mm3 (182-369); RED BLOOD CELL COUNT 5.26 M/mm3 (3.98-5.22); WHITE BLOOD CELL COUNT,WBC 9.52 K/mm3 (3.98-10.04)
[2022-12-03 08:52] LABS: PROTHROMBIN TIME 9.9 SECONDS (9.7-12.0)
[2022-12-03 08:53] LABS: PTT,PARTIAL THROMBOPLSTIN TIME 27.9 SECONDS (21.7-31.4)
[2022-12-03 09:04] LABS: A/G RATIO 0.9 (1-2); ALBUMIN 3.3 g/dl (3.4-5.0); ANION GAP 13.9 (5-15); BILIRUBIN TOTAL 0.3 mg/dL (0.2-1.0); BUN/CREATININE RATIO 18.9 (14-18); CREATININE 0.9 mg/dL (0.55-1.02); EST CRCL DRUG DOSING (CG) 53.23 mL/min; MAGNESIUM 1.9 mg/dL (1.8-2.4); POTASSIUM,K 3.9 mEq/L (3.5-5.1)
[2022-12-03 09:13] LABS: INR < 0.93
[2022-12-03 18:46] VITALS: BP 137/72
== END 2022-12-03 11:00 | disposition left against medical advice (07) ==
LOC: JD.ED 08:07
DX: R07.89 Other chest pain (principal); I25.10 Atherosclerotic heart disease of native coronary artery without angina pectoris; I11.0 Hypertensive heart disease with heart failure; I50.9 Heart failure, unspecified; I25.2 Old myocardial infarction; J45.909 Unspecified asthma, uncomplicated; M19.90 Unspecified osteoarthritis, unspecified site; E66.9 Obesity, unspecified; Z68.42 Body mass index [BMI] 45.0-49.9, adult; Z87.891 Personal history of nicotine dependence; Z88.8 Allergy status to other drugs, medicaments and biological substances; Z88.5 Allergy status to narcotic agent; Z88.2 Allergy status to sulfonamides; Z91.041 Radiographic dye allergy status; Z88.1 Allergy status to other antibiotic agents; Z79.82 Long term (current) use of aspirin
CPT/HCPCS: 36415; 71045; 71045-26; 80053; 83735; 83880; 84484; 85025; 85610; 85730; 93005; 93010; 99284; 99285; J3490

== ENCOUNTER 2023-03-21 14:17 | Emergency (ER) | payer MEDICARE, MEDICAID ==
[2023-03-21] MEDS ORDERED: Sodium Chloride 0.9% 10 ML Syringe FLUSH PRN (14:29)
[2023-03-21] MEDS ORDERED: Aspirin 81 MG Tab.Chew PO ONE (14:29)
[2023-03-21 15:15] LABS: BASOPHILS ABSOLUTE AUTO 0.1 K/mm3 (0.0-0.2); EOSINOPHILS ABSOLUTE AUTO 0.2 K/mm3 (0.0-0.4); EOSINOPHILS PERCENT AUTO 3.5 % (0.0-6.0); HEMATOCRIT 45.2 % (37.0-47.0); HEMOGLOBIN 14.4 gm/dl (12.0-16.0); IMMATURE GRAN ABSOLUTE AUTO 0.03 K/mm3 (0.00-0.05); IMMATURE GRAN PERCENT AUTO 0.5 % (0.0-0.4); LYMPHOCYTES ABSOLUTE AUTO 2.1 K/mm3 (1.0-4.8); MEAN CORPUSCULAR HEMOGLOBIN 26.9 pg (28.0-32.0); MEAN CORPUSCULAR HGB CONC 31.9 g/dl (32.0-36.0); MEAN CORPUSCULAR VOLUME 84.5 fl (83.0-99.0); MEAN PLATELET VOLUME 8.8 fl (9.4-12.3); MONOCYTES ABSOLUTE AUTO 0.3 K/mm3 (0.0-0.8); MONOCYTES PERCENT AUTO 5.2 % (0.0-8.0); NEUTROPHILS ABSOLUTE AUTO 3.6 K/mm3 (1.8-7.7); NEUTROPHILS PERCENT AUTO 56.8 % (41.0-71.0); PLATELET COUNT,PLT 255 K/mm3 (150-400); RED BLOOD CELL COUNT 5.35 M/mm3 (4.10-5.30)
[2023-03-21 15:32] LABS: INR 0.93
[2023-03-21 15:33] LABS: D-DIMER QUANTITATIVE 0.34 mg/L (0.19-0.50)
[2023-03-21 15:44] LABS: A/G RATIO 0.9 (1-2); ALBUMIN 3.2 g/dl (3.4-5.0); BILIRUBIN TOTAL 0.3 mg/dL (0.2-1.0); BUN/CREATININE RATIO 15.6 (14-18); CALCIUM 8.8 mg/dL (8.5-10.1); CREATININE 0.9 mg/dL (0.55-1.02); EST CRCL DRUG DOSING (CG) 52.77 mL/min; MAGNESIUM 1.9 mg/dL (1.8-2.4); PROTEIN TOTAL,TP 6.7 g/dl (6.4-8.2)
[2023-03-21 17:31] VITALS: BP 134/76; PULSE 84
== END 2023-03-21 16:45 | disposition home or self-care (01) ==
LOC: JD.ED 14:17
DX: R07.89 Other chest pain (principal); I25.10 Atherosclerotic heart disease of native coronary artery without angina pectoris; I11.0 Hypertensive heart disease with heart failure; I50.9 Heart failure, unspecified; I25.2 Old myocardial infarction; J45.909 Unspecified asthma, uncomplicated; M19.90 Unspecified osteoarthritis, unspecified site; E66.9 Obesity, unspecified; Z68.42 Body mass index [BMI] 45.0-49.9, adult; Z88.2 Allergy status to sulfonamides; Z88.8 Allergy status to other drugs, medicaments and biological substances; Z88.5 Allergy status to narcotic agent; Z79.82 Long term (current) use of aspirin; Z79.899 Other long term (current) drug therapy
CPT/HCPCS: 36415; 71045; 80053; 83735; 83880; 84484; 85025; 85379; 85610; 93005; 99285; A9270; J3490; 99284